=== PATIENT | male | born 1955 | race Caucasian/White ===

== ENCOUNTER 2017-08-03 05:45 | Day surgery (SDC) | payer OTHER ==
[~2017-08-03 05:45] MED LIST: ATACAND16 MG PO; ZOCOR40 MG PO
[2017-08-03] MEDS ORDERED: ZOFRAN ODT4 MG PO (09:47)
[2017-08-03] MEDS ORDERED: POLY119PG PO (09:47)
[2017-08-03] MEDS ORDERED: TYLENOL-CODEINE1 TA1 PO (09:47)
[2017-08-03] MEDS ORDERED: NEURONTIN300 MG PO (09:47)
== END 2017-08-03 12:15 | disposition home or self-care (01) ==
LOC: CIR.AMB 05:45
DX: K40.90 Unilateral inguinal hernia, without obstruction or gangrene, not specified as recurrent (principal); K42.9 Umbilical hernia without obstruction or gangrene

== ENCOUNTER 2018-10-04 07:44 | Outpatient (CLI) | payer OTHER ==
[~2018-10-04 07:44] MED LIST changes: +NEURONTIN300 MG PO; +POLY119PG PO; +TYLENOL-CODEINE1 TA1 PO; +ZOFRAN ODT4 MG PO
== END 2018-10-04 08:05 | disposition home or self-care (01) ==
LOC: RX STUDY 07:44
DX: K21.9 Gastro-esophageal reflux disease without esophagitis (principal)